=== PATIENT | female | born 1990 ===

== ENCOUNTER 2023-05-11 13:10 | Outpatient (CLI) | payer OTHER | END 2023-05-11 13:12 | disposition home or self-care (01) | LOC: PRENATAL 13:10 | PROVIDERS: ATTEND Obstetrics & Gynecology Maternal & Fetal Medicine | DX: O35.3XX0 Maternal care for (suspected) damage to fetus from viral disease in mother, not applicable or unspecified (principal); O44.00 Complete placenta previa NOS or without hemorrhage, unspecified trimester; Z3A.19 19 weeks gestation of pregnancy ==

== ENCOUNTER → 2023-07-28 12:36 | Outpatient (CLI) | payer OTHER | END | disposition home or self-care (01) | LOC: PRENATAL 12:36 | PROVIDERS: ATTEND Obstetrics & Gynecology Maternal & Fetal Medicine | DX: O26.849 Uterine size-date discrepancy, unspecified trimester (principal); O36.8199 Decreased fetal movements, unspecified trimester, other fetus; O24.419 Gestational diabetes mellitus in pregnancy, unspecified control; Z3A.30 30 weeks gestation of pregnancy ==

== ENCOUNTER → 2023-08-22 14:32 | Outpatient (CLI) | payer OTHER | END | disposition home or self-care (01) | LOC: PRENATAL 14:32 | PROVIDERS: ATTEND Obstetrics & Gynecology Maternal & Fetal Medicine | DX: O26.849 Uterine size-date discrepancy, unspecified trimester (principal); O36.8199 Decreased fetal movements, unspecified trimester, other fetus; O24.419 Gestational diabetes mellitus in pregnancy, unspecified control; Z3A.34 34 weeks gestation of pregnancy ==

== ENCOUNTER 2023-09-07 15:58 | Inpatient (IN) | payer OTHER ==
[~2023-09-07] VITALS: Ht 160 cm; Wt 2.3 kg
[2023-09-07] MEDS ORDERED: LABETALOL HCL 100 MG TABLET PO ONE (16:13)
[2023-09-07] MEDS ORDERED: BETAMETHASONE ACETATE,SOD PHOS 30 MG/5 ML ML ONE (16:14)
[2023-09-07] MEDS ORDERED: BETAMETHASONE ACETATE,SOD PHOS 30 MG/5 ML ML IM ONE (16:30)
[2023-09-07] MEDS ORDERED: RINGERS SOLUTION,LACTATED 1,000 ML IV SCH (16:30)
[2023-09-07 16:34] LABS: HEMATOCRIT 32.5 % (36.0-45.00); HEMOGLOBIN 11.1 g/dL (12.0-15.00); MEAN CELL VOLUME 85.9 fL (80.00-100.00); MEAN CORPUSCULAR HEMOGLOBIN 29.4 pg (27.00-32.0); MEAN CORPUSCULAR HGB CONC 34.2 g/dl (32.0-36.0); PLATELET COUNT 142 K/uL (150-450); RED BLOOD COUNT 3.79 M/uL (4.00-6.00); RED CELL DISTRIBUTION WIDTH 13.5 % (11.5-14.5)
[2023-09-07] MEDS ORDERED: PRENATAL TABLE1 EAC1 PO (16:46)
[2023-09-07] MEDS ORDERED: MAGNESIUM200 MG PO (16:46)
[2023-09-07 17:00] LABS: INR < 0.93; PARTIAL THROMBOPLASTIN TIME 25.6 SECONDS (22.0-34.0); PROTHROMBIN TIME 9.3 SECONDS (9.0-11.5)
[2023-09-07] MEDS ORDERED: LABETALOL HCL 100 MG TABLET PO SCH (17:30)
[2023-09-08] MEDS ORDERED: LABETALOL HCL 100 MG TABLET PO SCH (05:00)
[2023-09-08] MEDS ORDERED: FAMOTIDINE/PF 20 MG/2 ML VIAL IV PUSH ONE (12:15)
[2023-09-08 13:37] LABS: ALBUMIN 2.3 gm/dL (3.4-5.0); BILIRUBIN TOTAL 0.19 mg/dL (0.3-1.2); CALCIUM 8.8 mg/dL (8.5-10.1); CREATININE SERUM 0.61 mg/dL (0.55-1.02); GFR 114.4; GLOBULINA 3.3 G/DL (2.4-3.5); TOTAL PROTEIN 5.6 gm/dL (6.4-8.2)
[2023-09-08] MEDS ORDERED: LORATADINE 10 MG TABLET PO SCH (16:00)
[2023-09-08] MEDS ORDERED: BETAMETHASONE ACETATE,SOD PHOS 30 MG/5 ML ML IM ONE (16:15)
[2023-09-09] MEDS ORDERED: FAMOtidine 20 MG TABLET PO SCH (10:26)
[2023-09-09 12:43] LABS: HEMATOCRIT 30.2 % (36.0-45.00); HEMOGLOBIN 10.1 g/dL (12.0-15.00); MEAN CELL VOLUME 87.3 fL (80.00-100.00); MEAN CORPUSCULAR HEMOGLOBIN 29.1 pg (27.00-32.0); MEAN CORPUSCULAR HGB CONC 33.3 g/dl (32.0-36.0); PLATELET COUNT 137 K/uL (150-450); RED BLOOD COUNT 3.46 M/uL (4.00-6.00); RED CELL DISTRIBUTION WIDTH 13.7 % (11.5-14.5)
[2023-09-10] MEDS ORDERED: MAGNESIUM SULFATE IN WATER 100 ML IV ONE (01:15)
[2023-09-10] MEDS ORDERED: ACETAMINOPHEN 500 MG GEL..CAP PO ONE ×2 (01:15→20:49)
[2023-09-10] MEDS ORDERED: MAGNESIUM SULFATE IN WATER 500 ML IV SCH (01:15)
[2023-09-10 01:38] LABS: HEMATOCRIT 31.1 % (36.0-45.00); HEMOGLOBIN 10.3 g/dL (12.0-15.00); MEAN CELL VOLUME 87.1 fL (80.00-100.00); MEAN CORPUSCULAR HEMOGLOBIN 28.9 pg (27.00-32.0); MEAN CORPUSCULAR HGB CONC 33.2 g/dl (32.0-36.0); PLATELET COUNT 141 K/uL (150-450); RED BLOOD COUNT 3.57 M/uL (4.00-6.00); RED CELL DISTRIBUTION WIDTH 13.7 % (11.5-14.5)
[2023-09-10 02:05] LABS: ALT/SGPT 22 U/L (12-78); AST/SGOT 19 U/L (15-37)
[2023-09-10] MEDS ORDERED: MAGNESIUM SULFATE IN WATER 0.04 GM/ML IV.SOLN IV ONE (02:27)
[2023-09-10 02:53] LABS: URINE APPEARANCE Clear; URINE BILIRRUBIN Negative (NEGATIVE); URINE BLOOD Negative; URINE COLOR Yellow; URINE GLUCOSE Negative (NEGATIVE); URINE LEUKOCYTE Negative; URINE NITRATE Negative; URINE PROTEIN Negative (NEGATIVE); URINE UROBILINOGEN 0.2 E.U./dl
[2023-09-10 02:57] LABS: URINE BACTERIA 214.1 uL (0.0-1933); URINE EPITHELIAL CELLS 9.5 uL (0.0-38.8); URINE RBC 2.4 uL (0.0-20.8); URINE WBC 4.9 uL (0.0-23.2)
[2023-09-10] MEDS ORDERED: hydrOXYzine PAMOATE 50 MG CAPSULE PO ONE (20:50)
[2023-09-10] MEDS ORDERED: ACETAMINOPHEN 500 MG GEL..CAP PO PRN (22:15)
[2023-09-11] MEDS ORDERED: LABETALOL HCL 100 MG/20 ML ML IV PUSH ONE ×2 (04:00→11:30)
[2023-09-11] MEDS ORDERED: MAGNESIUM SULFATE IN WATER 500 ML IV SCH (05:15)
[2023-09-11] MEDS ORDERED: OXYTOCIN 10 UNITS/ML VIAL ONE (08:20)
[2023-09-11] MEDS ORDERED: ERYTHROMYCIN BASE 3.5 GM OINT...G. OP ONE (08:20)
[2023-09-11] MEDS ORDERED: CEFAZOLIN SODIUM 1,000 MG VIAL IV ONE (09:00)
[2023-09-11] MEDS ORDERED: OXYTOCIN 10 UNITS/ML VIAL IV ONE (09:00)
[2023-09-11] MEDS ORDERED: ERYTHROMYCIN BASE 1 GM TUBE OP ONE (09:00)
[2023-09-11] MEDS ORDERED: MEPERIDINE HCL/PF 50 MG/ML VIAL IM PRN (09:30)
[2023-09-11] MEDS ORDERED: PROMETHAZINE HCL 50 MG/ML AMPUL IM PRN (09:30)
[2023-09-11] MEDS ORDERED: MAGNESIUM SULFATE IN WATER 0.04 GM/ML IV.SOLN IV ONE (10:38)
[2023-09-11] MEDS ORDERED: PROMETHAZINE HCL 50 MG/ML AMPUL ONE (10:38)
[2023-09-11 10:44] LABS: ABG pCO2 43.5 mmHg (35-45); BASE EXCESS -1.5 mmol/l; SaO2 41.4 %; Tco2 25.4 mmol/l
[2023-09-11 10:45] LABS: o2 21 %
[2023-09-11] MEDS ORDERED: LABETALOL HCL 100 MG/20 ML ML ONE ×2 (11:09→12:02)
[2023-09-11] MEDS ORDERED: LABETALOL HCL 100 MG TABLET PO SCH (12:00)
[2023-09-11] MEDS ORDERED: KETOROLAC TROMETHAMINE 60 MG VIAL IM ONE ×2 (13:45→18:30)
[2023-09-11 16:23] LABS: HEMATOCRIT 32.8 % (36.0-45.00); HEMOGLOBIN 10.9 g/dL (12.0-15.00); MEAN CELL VOLUME 86.9 fL (80.00-100.00); MEAN CORPUSCULAR HEMOGLOBIN 28.9 pg (27.00-32.0); MEAN CORPUSCULAR HGB CONC 33.3 g/dl (32.0-36.0); PLATELET COUNT 143 K/uL (150-450); RED BLOOD COUNT 3.77 M/uL (4.00-6.00); RED CELL DISTRIBUTION WIDTH 13.8 % (11.5-14.5)
[2023-09-11] MEDS ORDERED: LABETALOL HCL 200 MG TABLET PO SCH (17:00)
[2023-09-11] MEDS ORDERED: hydrOXYzine PAMOATE 50 MG CAPSULE PO SCH (21:00)
[2023-09-12] MEDS ORDERED: OxyCODONE HCL/APAP UD (PERCOCET) PO PRN (08:00)
[2023-09-12] MEDS ORDERED: DOCUSATE SODIUM 100MG CAP PO SCH (09:00)
[2023-09-12] MEDS ORDERED: SIMETHICONE 125 MG CAPSULE PO SCH (09:00)
[2023-09-12] MEDS ORDERED: PNV,CALCIUM 72/IRON/FOLIC ACID 1 TAB TABLET PO SCH (09:00)
[2023-09-12] MEDS ORDERED: IBUprofen 600 MG TABLET PO PRN (09:30)
== END 2023-09-14 12:21 | disposition home or self-care (01) | DRG 788 ==
LOC: OB/GYN 15:58 → LDR 15:58 → OB/GYN 09-08 17:00
PROVIDERS: Obstetrics & Gynecology; ADMIT Obstetrics & Gynecology; ATTEND Obstetrics & Gynecology
PROC: 4A1HXCZ Monitoring of Products of Conception, Cardiac Rate, External Approach (ICD-10-PCS; 2023-09-07)
PROC: BY4FZZZ Ultrasonography of Third Trimester, Single Fetus (ICD-10-PCS; 2023-09-08)
PROC: 10D00Z1 Extraction of Products of Conception, Low, Open Approach (ICD-10-PCS; principal; 2023-09-11 09:45)
DX: O14.14 Severe pre-eclampsia complicating childbirth (principal); O26.843 Uterine size-date discrepancy, third trimester; O36.8130 Decreased fetal movements, third trimester, not applicable or unspecified; Z3A.36 36 weeks gestation of pregnancy; Z37.0 Single live birth; Z20.822 Contact with and (suspected) exposure to COVID-19